=== PATIENT | female | born 1940 | race Caucasian/White ===

== ENCOUNTER → 2016-10-29 | Outpatient (CLI) | payer MEDICARE, BC ==
[~2016-10-29] MED LIST: ASPIRIN81 M2 PO; ATORVASTATIN CA10 MG PO; CALCIUM + D 6001 TA1 PO; METOPROLOL TAR25 MG PO; MULTI-VITAMIN1 EAC1 PO; OMEPRAZOLE40 M1 PO
--- NOTE | ~2016-10-29 | BD1 ---
[facility] A Service of [facility] & [facility] RADIOLOGY TEXT RESULTS PATIENT: ROSELIA ORTEGA LOCATION: [facility] : 38 UNIT #: [id number] AGE: [address]: Ray Chowdhury MD SEX: F ORDER DR: [id number] [address] [id number] O MR#: [id number] Acc #: [id number] NAME: ROSELIA ORTEGA. : 1940 SEX: F STUDY DATE/TIME: 10/29/2016 9:40 UNIT: [facility] ROOM: STUDY DESCRIPTION: Dexa Bone Dens 1+ Site Attending Physician: Ray Chowdhury M.D. Referring Physician: Ray Chowdhury M.D. Ordering Physician: Ray Chowdhury M.D. Primary Care Physician: Ray Chowdhury M.D. MEDICAL IMAGING REPORT This report is preliminary unless electronic signature is present. EXAM Bone density scan spine/hips 10/29/2016 HISTORY Post-menopausal. Takes calcium supplements. TECHNIQUE Bone density scanning performed upper 4 lumbar vertebral segments and both proximal femurs in [age]-year-old 151-pound female. COMPARISON STUDIES No comparisons. FINDINGS L1-L4: Bone mineral density 1.188 g/cm2 for T-score 0.1 standard deviations above the mean for reference population of normal young individuals and Z-score 1.7 standard deviations above the mean for age-matched population. Proximal left femur: Total bone mineral density 0.950 g/cm2 for T-score 0.5 standard deviations above the mean for reference population of normal young individuals and Z-score 1.3 standard deviations above the mean for age-matched population. In the left femoral neck specifically, the bone mineral density is 0.994 g/cm2 for T-score 0.3 standard deviations below the mean for reference population of normal young individuals and Z-score 1.6 standard deviations above the mean for age-matched population. Right proximal femur: Total bone mineral density 1.027 g/cm2 for T-score 0.2 standard deviations above the mean for reference population of normal young individuals and Z-score 1.9 standard deviations above the mean for age-matched population. In the right femoral neck specifically, the bone mineral density is 0.959 g/cm2 for T-score 0.6 standard deviations below STS. [facility] A Service of [facility] RADIOLOGY TEXT RESULTS PATIENT: ROSELIA ORTEGA LOCATION: [facility] : 38 UNIT #: [id number] AGE: [address]: Ray Chowdhury MD SEX: F ORDER DR: the mean for reference population of normal young individuals and Z-score 1.4 standard deviations above the mean for age-matched population. IMPRESSION 1. Bone mineral density is normal in the upper 4 lumbar vertebral segments overall and in both proximal femurs, inclusive of bilateral femoral necks. Please correlate with the patient's clinical status. Continued surveillance is recommended. Dictated by... Krish Cohen M.D. THIS IS AN ELECTRONICALLY VERIFIED REPORT Krish Cohen M.D. at 10/30/2016 10:29 AM Pietro TD: 10/29/2016 18:29 JOB #: [id number] MEDICAL IMAGING REPORT Page 1 of 1
== END | disposition home or self-care (01) ==
LOC: SRAD 09:10
DX: Z13.820 Encounter for screening for osteoporosis (principal); Z78.0 Asymptomatic menopausal state
CPT/HCPCS: 77080